=== PATIENT | female | born 1995 | race Asian ===

== ENCOUNTER 2018-11-24 20:23 | Emergency (ER) | payer OTHER, SELFPAY ==
[2018-11-24 20:48] LABS: BHCG - Serum Negative (NEGATIVE); Pregs Control Background? CLEAR/WHITE (CLR/WHITE); Pregs Control Bar Appear? YES (CONTROL BAR)
[2018-11-24 20:55] LABS: ALT (SGPT) 31 U/L (8-55); AST (SGOT) 26 U/L (5-34); Albumin 4.8 g/dL (3.5-5.0); Alkaline Phosphatase 58 U/L (40-150); Anion Gap 19 mmol/L (10-20); BUN (Urea Nitrogen) 14 mg/dL (7.0-18.7); Bilirubin, Total 0.3 mg/dL (0.2-1.2); Calc. Creatinine Clearance 0 mL/min (70-130); Calcium 10.4 mg/dL (7.8-10.44); Carbon Dioxide 17 mmol/L (22-29); Chloride 107 mmol/L (98-107); Estimated GFR-MDRD 88; Globulin 3.6 g/dL (2.4-3.5); Glucose 105 mg/dL (70-105); Potassium 3.4 mmol/L (3.5-5.1); Protein, Total 8.4 g/dL (6.0-8.3); Sodium 140 mmol/L (136-145)
[2018-11-24 21:00] LABS: Band 5 % (5-11); Eosinophils 2 % (0-10); Hemoglobin 14.4 g/dL (12.0-16.0); Lymphocytes 30 % (28-48); MDiff Complete? YES; Mean Corpuscular HGB CONC 32.6 g/dL (32.0-36.0); Mean Corpuscular Volume 85.7 fL (78.0-98.0); Mean Platelet Volume 7.2 fL (7.4-10.4); Monocytes 7 % (0-4); Neutrophil 54 % (31-61); Platelet Count 334 thou/uL (130-400); Platelet Morphology Comment Appears Adequate; RBC Distribution Width 13.4 % (11.5-14.5); Reactive Lymphocytes 1 % (0-10); Red Blood Cell (RBC) Count 5.15 mill/uL (4.00-5.20)
[2018-11-24 21:34] LABS: Base Excess-Venous -3.9 mmol/L (0 (+/- 2.5)); Bicarbonate (HCO3v) 17.5 mmol/L (22.0-29.0); CO2 Tension (PvCO2) 23.3 mmHg (41.0-51.0); Hemoglobin - Calc 14.8 g/dL (12.0-18.0); O2 Tension (PvO2) 33.6 mmHg (35.0-45.0); Potassium 3.4 mmol/L (3.4-4.7); T. Carbon Dioxide 18.2 mmol/L (1.0-85.0); pH (Venous) 7.484 (7.35-7.45); vO2 Saturation-calc 71.7 % (94-98)
--- NOTE | 2018-11-28 14:37 | EKG ---
Test Reason : Blood Pressure : / mmHG Vent. Rate : 132 BPM Atrial Rate : 132 BPM P-R Int : 140 ms QRS Dur : 066 ms QT Int : 280 ms P-R-T Axes : 054 047 -06 degrees QTc Int : 414 ms Sinus tachycardia Nonspecific T wave abnormality Abnormal ECG Confirmed by PRASANTH JOHNSON D.O. ([id number]), online editor SARAI MACE ([id number]) on 11/28/2018 2:36:57 PM Referred By: Confirmed By:PRASANTH JOHNSON D.O.
== END 2018-11-24 22:02 | disposition home or self-care (01) ==
LOC: SCSER 20:23
DX: F45.8 Other somatoform disorders (principal); R42 Dizziness and giddiness
CPT/HCPCS: 80053; 82330; 82803; 84703; 85014; 85025; 93005; 96360